=== PATIENT | male | born 1965 | race Caucasian/White ===

== ENCOUNTER 2017-11-03 15:45 | Inpatient (IN) | payer OTHER ==
[2017-11-03 17:34] LABS: ABS Basophils 0 10^3/ul (0-0.2); ABS Eosinophils 0 10^3/ul (0-0.6); ABS Lymphocytes 0.4 10^3/ul (1.0-4.8); ABS Monocytes 0.6 10^3/ul (0-0.8); ABS Neutrophils 8.8 10^3/ul (1.5-7.7); ABS Nucleated RBC 0 10^3/ul; Eosinophil % 0.3 % (0-6); Hematocrit 37 % (42-52); Hemoglobin 12.7 g/dl (14.0-18.0); Lymphocyte % 3.6 % (25-47); Mean Corpuscular HGB Conc 35 g/dl (31-36); Mean Corpuscular Hemoglobin 30 pg (27-31); Mean Corpuscular Volume 86 fL (80-94); Mean Platelet Volume 7 um3 (7.4-10.4); Nucleated Red Blood Cells % 0; Platelet Count 132 10^3/ul (150-450); Red Blood Count 4.27 10^6/ul (4.0-5.4); Red Cell Distribution Width 14 % (10.5-15); White Blood Count 9.8 10^3/ul (3.5-10.8)
[2017-11-03 17:46] LABS: EGFR Non-African American 53.4 (>60)
[2017-11-03] MEDS ORDERED: Iodixanol* (CONTRAST) 320 MG/ML 100 ML SDV IV ONE (18:26)
--- NOTE | 2017-11-03 18:55 | RAD ---
HISTORY: Fever and chills, lymph nodes that are painful and neck, abscess COMPARISONS: PET CT dated October 12, 2017, CT of the neck dated September 17, 2017, MRI dated February 02, 2015 TECHNIQUE: Multiple contiguous axial CT scans were obtained of the neck after the administration of nonionic intravenous contrast, with coronal and sagittal multiplanar reformations. FINDINGS: BRAIN AND ORBITS: The visualized brain and orbits are normal. PARANASAL SINUSES: There is a small mucous retention cyst versus polypoid mucosal thickening of the right maxillary sinus. SALIVARY GLANDS: The parotid glands, submandibular glands, sublingual glands are normal. NASAL CAVITY/NASOPHARYNX: The nasal cavity and nasopharynx are normal. ORAL CAVITY/OROPHARYNX: The oral cavity is obscured by streak artifact from dental amalgam. The visualized oral cavity and oropharynx are unremarkable. A surgical clip is noted in the region of the left pontine tonsil. LARYNGEAL APPARATUS/HYPOPHARYNX: The laryngeal apparatus and hypopharynx are normal. UPPER AIRWAY/UPPER ESOPHAGUS: The visualized upper airway and esophagus are normal. LUNG APICES: The lung apices are clear. THYROID GLAND: The thyroid gland is normal. LYMPH NODES: There is no lymphadenopathy by size criteria. VASCULATURE: The vasculature is unremarkable. BONES AND SOFT TISSUES: Mild degenerative changes are noted. OTHER: There is no loculated fluid collection to suggest abscess. There is no inflammatory change within the visualized portion of the neck. IMPRESSION: NO LYMPHADENOPATHY BY SIZE CRITERIA. NO LOCULATED FLUID COLLECTION TO SUGGEST ABSCESS.
[2017-11-03] MEDS ORDERED: Vancomycin(*) 1,000 MG in NS 0.9% 250 ML* 250 ML IVPB ONE (19:04)
[2017-11-03] MEDS ORDERED: Vancomycin(*) 1,000 MG BAG/ADDV IVPB ONE (20:13)
[2017-11-03] MEDS ORDERED: Acetaminophen TAB* 325 MG ONE (22:40)
[2017-11-03] MEDS ORDERED: Acetaminophen TAB* 325 MG PO ONE (22:41)
[2017-11-04] MEDS ORDERED: Ibuprofen TAB* 800 MG PO ONE (00:39)
[2017-11-04] MEDS ORDERED: NS 0.9% 1000 ML* 1,000 ML IV ONE (00:40)
--- NOTE | 2017-11-04 01:03 | ED ---
I, Gabby Montoya, scribed for Enzo Blackwood MD on 11/04/17 at 0040 . Progress - Progress Note Progress Note: Pt is a 51 y/o M signed out by Dr. 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 Pt presented to ED with pain, redness and mild swelling to the L side of the neck since yesterday with fever. Pt denies N/V, among other things. Pt's neck CT was negative. On exam, pt has tenderness and erythema to the L side of the neck with mild swelling. Pt was given 1 g of IV Vancomycin in ED earlier. Re-Evaluation - Re-Evaluation First Eval Re-Evaluation Time: 00:25 Comment: Evaluated the pt and discussed plan to admit. Course/Dx - Course Course Of Treatment: Pt is a 51 y/o M signed out by Dr. Mohr with a Hx of L- side neck CA s/p surgery and radiation and pt's surgery was complicated by chyle leak. Pt presented to ED with pain, redness and mild swelling to the L side of the neck since yesterday with fever. Pt denies N/V, among other things. Pt's neck CT was negative. On exam, pt has tenderness and erythema to the L side of the neck with mild swelling. Pt was given 1 g of IV Vancomycin in ED earlier. Due to the pt's Hx, I will admit pt for cellulitis of the left neck and IV Abx. Discussed care of pt with Dr. García who accepts pt for admission. He understands and agrees. Pt's ocndition is stable. - Diagnoses Provider Diagnoses: Cellulitis, neck - Provider Notifications Discussed Care Of Patient With: Eulogio García Time Discussed With Above Provider: 00:58 Instructed by Provider To: Other - Accepts pt for admission. The documentation as recorded by the Lindsay ramsey Rebecca accurately reflects the service I personally performed and the decisions made by me, Enzo Blackwood MD.
[2017-11-04] MEDS ORDERED: Acetaminophen TAB* 325 MG PO PRN (02:22)
[2017-11-04] MEDS ORDERED: CMCS: Melatonin (NF) 3 MG TAB PO PRN (02:22)
[2017-11-04] MEDS ORDERED: traMADol TAB* 50 MG PO PRN (02:22)
[2017-11-04] MEDS ORDERED: Ondansetron INJ* 2 MG/ML VIAL IV PRN (02:22)
[2017-11-04] MEDS ORDERED: NS 0.9% 1000 ML* 1,000 ML IV SCH (02:30)
[2017-11-04] MEDS ORDERED: Vancomycin per Pharmacy* NOTE FOLLOW UP SCH (03:00)
[2017-11-04] MEDS: Omeprazole CAP* 20 MG PO SCH (05:22)
[2017-11-04 05:26] LABS: ABS Basophils 0 10^3/ul (0-0.2); ABS Eosinophils 0.1 10^3/ul (0-0.6); ABS Lymphocytes 0.6 10^3/ul (1.0-4.8); ABS Monocytes 0.5 10^3/ul (0-0.8); ABS Neutrophils 4.6 10^3/ul (1.5-7.7); ABS Nucleated RBC 0 10^3/ul; Eosinophil % 1.8 % (0-6); Hematocrit 33 % (42-52); Hemoglobin 11.4 g/dl (14.0-18.0); Lymphocyte % 9.5 % (25-47); Mean Corpuscular HGB Conc 34 g/dl (31-36); Mean Corpuscular Hemoglobin 30 pg (27-31); Mean Corpuscular Volume 87 fL (80-94); Mean Platelet Volume 7 um3 (7.4-10.4); Nucleated Red Blood Cells % 0.1; Platelet Count 107 10^3/ul (150-450); Red Blood Count 3.79 10^6/ul (4.0-5.4); Red Cell Distribution Width 14 % (10.5-15); White Blood Count 5.8 10^3/ul (3.5-10.8)
[2017-11-04 05:43] LABS: INR 1.02 (0.77-1.02)
[2017-11-04 05:48] LABS: EGFR Non-African American 46.1 (>60)
--- NOTE | 2017-11-04 06:04 | HP ---
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 He denies N/V/S, difficulty swallowing, or other issues. He did have a PET/CT ~3 weeks ago which reportedly had a small/weak spot of uptake in this area not felt to be malignant by Dr Amaya, radiation oncology. In this setting, it could represent early infection. In ED he has had persistent fever despite acetaminophen, WBCs 9.8k 90% neutrophils. CT neck soft tissue W is negative. PMedHx L tonsillar CA s/p excision & radical neck dissection complicated by chyle leak , resolved HTN Ambulatory Orders Nursing to reconcile. Lisinopril TAB* [Prinivil TAB*] 10 mg PO DAILY 11/26/14 Cholecalciferol [Vitamin D] 1,000 unit PO DAILY 08/17/16 Multiple Vitamins W/ Minerals [Multivitamin Adults] 1 tab PO DAILY 08/17/16 Allergies No Known Allergies Allergy (Verified 09/17/17 10:38) PSurgHx tonsillectomy w/ L radical neck dissection thoracic duct ligation SocHx: no tobacco, alcohol, or recreational drugs; lives with his ; owns a [employer]; full code status FamHx: Mother: alive 70, benign adrenal tumor; Father: alive at 75 w/ HTN; Sister: HLD ROS: as above, otherwise reviewed and all were negative vitals: Vital Signs Temp 36.6 C 11/04/17 03:56 Pulse 70 11/04/17 03:56 Resp 16 11/04/17 03:56 BP 120/77 11/04/17 03:56 Pulse Ox 99 11/04/17 03:56 Intake & Output 11/03/17 11/03/17 11/04/17 11:59 23:59 11:59 Intake Total 96 Balance 96 Weight 72.121 kg 75.206 kg Intake: IV Fluids 96 NS (0.9%) 96 Constitutional: NAD, normally developed, well-nourished white male HEENM: atraumatic; sclera/conjunctiva: anicteric/clear; hearing: clinically intact; oropharynx: clear, mucosa tacky Neck: soft tissue: warmth & erythema of the L neck; thyroid: negative Pulmonary: clear to auscultation bilaterally, good aeration, no accessory muscle use CV: RR/RR, normal S1S2, no carotid bruit, no jugular venous distention, 2+ B DP/ PT, no edema Abdominal: soft, non-distended, non-tender, no rebound/guarding/rigidity, normoactive bowel sounds, no hepatosplenomegaly or masses, no costovertebral angle tenderness Musculoskeletal: general: grossly intact, no tenderness w/ palpation Integumental: as above Psychiatric orientation: AA&O to PPS affect: calm mood: cooperative eye contact: good content: reliable responses: timely insight: good Testing: Lab Results 11/03/17 11/03/17 11/03/17 Range/Units 17:16 17:16 17:35 WBC 9.8 (3.5-10.8) 10^3/ul RBC 4.27 (4.0-5.4) 10^6/ul Hgb 12.7 L (14.0-18.0) g/dl Hct 37 L (42-52) % MCV 86 (80-94) fL MCH 30 (27-31) pg MCHC 35 (31-36) g/dl RDW 14 (10.5-15) % Plt Count 132 L (150-450) 10^3/ul MPV 7 L (7.4-10.4) um3 Neut % (Auto) 90.1 H (38-83) % Lymph % (Auto) 3.6 L (25-47) % Reagan % (Auto) 5.9 (1-9) % Eos % (Auto) 0.3 (0-6) % Baso % (Auto) 0.1 (0-2) % Absolute Neuts (auto) 8.8 H (1.5-7.7) 10^3/ul Absolute Lymphs (auto) 0.4 L (1.0-4.8) 10^3/ul Absolute Monos (auto) 0.6 (0-0.8) 10^3/ul Absolute Eos (auto) 0 (0-0.6) 10^3/ul Absolute Basos (auto) 0 (0-0.2) 10^3/ul Absolute Nucleated RBC 0 10^3/ul Nucleated RBC % 0 INR (Anticoag Therapy) (0.77-1.02) APTT (26.0-36.3) seconds Sodium 136 (133-145) mmol/L Potassium 4.1 (3.5-5.0) mmol/L Chloride 103 (101-111) mmol/L Carbon Dioxide 27 (22-32) mmol/L Anion Gap 6 (2-11) mmol/L BUN 17 (6-24) mg/dL Creatinine 1.40 H (0.67-1.17) mg/dL Est GFR ( Amer) 68.7 (>60) Est GFR (Non-Af Amer) 53.4 (>60) BUN/Creatinine Ratio 12.1 (8-20) Glucose 103 H (70-100) mg/dL Calcium 9.4 (8.6-10.3) mg/dL Total Bilirubin 0.70 (0.2-1.0) mg/dL AST 20 (13-39) U/L ALT 14 (7-52) U/L Alkaline Phosphatase 54 (34-104) U/L C-Reactive Protein 77.17 H (< 5.00) mg/L Total Protein 6.4 (6.4-8.9) g/dL Albumin 3.6 (3.2-5.2) g/dL Globulin 2.8 (2-4) g/dL Albumin/Globulin Ratio 1.3 (1-3) Influenza A (Rapid) Negative (Negative) Influenza B (Rapid) Negative (Negative) 11/04/17 11/04/17 11/04/17 Range/Units 04:58 04:58 04:58 WBC 5.8 (3.5-10.8) 10^3/ul RBC 3.79 L (4.0-5.4) 10^6/ul Hgb 11.4 L (14.0-18.0) g/dl Hct 33 L (42-52) % MCV 87 (80-94) fL MCH 30 (27-31) pg MCHC 34 (31-36) g/dl RDW 14 (10.5-15) % Plt Count 107 L (150-450) 10^3/ul MPV 7 L (7.4-10.4) um3 Neut % (Auto) 79.4 (38-83) % Lymph % (Auto) 9.5 L (25-47) % Reagan % (Auto) 9.0 (1-9) % Eos % (Auto) 1.8 (0-6) % Baso % (Auto) 0.3 (0-2) % Absolute Neuts (auto) 4.6 (1.5-7.7) 10^3/ul Absolute Lymphs (auto) 0.6 L (1.0-4.8) 10^3/ul Absolute Monos (auto) 0.5 (0-0.8) 10^3/ul Absolute Eos (auto) 0.1 (0-0.6) 10^3/ul Absolute Basos (auto) 0 (0-0.2) 10^3/ul Absolute Nucleated RBC 0 10^3/ul Nucleated RBC % 0.1 INR (Anticoag Therapy) 1.02 (0.77-1.02) APTT 30.1 (26.0-36.3) seconds Sodium (133-145) mmol/L Potassium (3.5-5.0) mmol/L Chloride (101-111) mmol/L Carbon Dioxide (22-32) mmol/L Anion Gap (2-11) mmol/L BUN 17 (6-24) mg/dL Creatinine 1.59 H (0.67-1.17) mg/dL Est GFR ( Amer) 59.3 (>60) Est GFR (Non-Af Amer) 46.1 (>60) BUN/Creatinine Ratio (8-20) Glucose (70-100) mg/dL Calcium (8.6-10.3) mg/dL Total Bilirubin (0.2-1.0) mg/dL AST (13-39) U/L ALT (7-52) U/L Alkaline Phosphatase (34-104) U/L C-Reactive Protein (< 5.00) mg/L Total Protein (6.4-8.9) g/dL Albumin (3.2-5.2) g/dL Globulin (2-4) g/dL Albumin/Globulin Ratio (1-3) Influenza A (Rapid) (Negative) Influenza B (Rapid) (Negative) CT neck soft tissue W, personally reviewed: IMPRESSION: NO LYMPHADENOPATHY BY SIZE CRITERIA. NO LOCULATED FLUID COLLECTION TO SUGGEST ABSCESS. Impression: 51M HX L tonsillar CA, radical neck dissection, & thoracic duct ligation presenting with L neck soft tissue infection DIAGNOSIS & PLAN Primary L neck soft tissue infection : IV vancomycin until improved as he has inadequate lymphatic support to the area : IVFs : blood CX : supportive care Secondary HTN : continue lisinopril Admission Rational: inpatient for IVFs & IV ABX for L neck infection, no anticipated to be adequately improve w/i 48H to allow for discharge DVTp: heparin SQ Code Status: full HCP:
[2017-11-04] MEDS: Docusate CAP* 100 MG PO SCH ×2 (07:21→20:54)
[2017-11-04] MEDS: Lisinopril TAB* 10 MG PO SCH (07:21)
--- NOTE | 2017-11-04 09:01 | PN ---
Subjective - Subjective Reason for Note: Progress Note History: Mary Grace Lorenzo presents with pain in the left posterior neck and fever. I obtained a history from the patient and also from Dr. García's admitting history and physical. 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 He was managed with surgery at [facility] and this was complicated by a thoracic duct injury with chyle leak that subsequently resolved. This was followed by radiotherapy at [facility] in 2015. His radiation oncologist is Dr. Aashish Amaya. His routine screening CT scans showed x 2 ground glass opacities in his lungs. This led to a PET scan 2 weeks ago. He had some pain in the area of the right ear that resolved - interestingly there was a signal also over the right parotid, maybe he had mild parotiditis accounting for this pain. The chest was clear, but there was uptake in the posterior neck. 3 days ago he developed a sore throat. He then couldn' t keep warm and had a fever. He developed pain in the left posterior neck along the line of a muscle. There was swelling and redness in the same region. This morning his fever has gone, he continues to be tender in the area in his neck, but this is improved. He has no other new symptoms. 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) C09.9 Current Medications: Current Medications Acetaminophen (Tylenol Tab*) 650 mg PO Q6H PRN PRN Reason: FEVER/PAIN Docusate Sodium (Colace Cap*) 200 mg PO BID [facility] Last Admin: 11/04/17 07:21 Dose: Not Given Heparin Sodium (Porcine) (Heparin Vial(*)) 5,000 units SUBCUT Q8HR [facility] Sodium Chloride (Ns 0.9% 1000 Ml*) 1,000 mls @ 75 mls/hr IV PER RATE [facility] Last Admin: 11/04/17 04:05 Dose: 75 mls/hr Vancomycin HCl 1,000 mg/ (Sodium Chloride) 250 mls @ 166.667 mls/hr IVPB Q12H [facility] Lisinopril (Prinivil Tab*) 10 mg PO DAILY [facility] Last Admin: 11/04/17 07:21 Dose: 10 mg Melatonin (Melatonin (Nf)) 3 mg PO BEDTIME PRN; Protocol PRN Reason: Sleep Omeprazole (Prilosec Cap*) 20 mg PO DAILY@0600 [facility] Last Admin: 11/04/17 05:22 Dose: 20 mg Ondansetron HCl (Zofran Inj*) 4 mg IV Q6H PRN PRN Reason: NAUSEA Pharmacy Consult (Vancomycin Per Pharmacy*) 1 note FOLLOW UP .VANC PER PHARMACY [facility] Pharmacy Profile Note (Vancomycin Trough Check) 1 note FOLLOW UP 929 ONE Stop: 11/05/17 09:31 Tramadol HCl (Ultram*) 50 mg PO Q6H PRN PRN Reason: PAIN - Review of Systems Constitutional Symptoms: Yes: Fever Pulmonary: Negative: Cough, Sputum, Hemoptysis Cardiology: Negative: Chest Pain, Shortness of Breath, Palpitations, Edema Gastroenterology: Negative: Abdominal Pain, Nausea, Vomiting, Anorexia, Change in Bowel Habits Genital - Urinary: Negative: Dysuria Home Medications: Home Medications Medication Instructions Recorded Confirmed Type Lisinopril TAB* [Prinivil TAB*] 10 mg PO DAILY 11/26/14 11/04/17 History Cholecalciferol [Vitamin D] 1,000 unit PO DAILY 08/17/16 11/04/17 History Multiple Vitamins W/ Minerals 1 tab PO DAILY 08/17/16 11/04/17 History [Multivitamin Adults] Allergies: Allergies Allergy/AdvReac Type Severity Reaction Status Date / Time No Known Allergies Allergy Verified 09/17/17 10:38 Objective - Vital Signs Vital Signs: Vital Signs 11/04/17 11/04/17 11/04/17 03:22 03:56 07:15 Temperature 99.1 F 97.9 F 98.1 F Pulse Rate 78 70 Respiratory 16 16 Rate Blood Pressure 127/68 120/77 122/70 (mmHg) O2 Sat by Pulse 98 99 Oximetry 11/04/17 07:28 Temperature Pulse Rate Respiratory 16 Rate Blood Pressure (mmHg) O2 Sat by Pulse Oximetry - Intake and Output Intake and Output: Intake & Output 11/01/17 11/02/17 11/03/17 11/04/17 11:59 11:59 11:59 11:59 Intake Total 96 Balance 96 Weight 165 lb 12.8 oz Intake: IV Fluids 96 NS (0.9%) 96 Oral 0 Other: Estimated Void Large # Bowel Movements 0 # Voids 1 ADLs: Meal Record Start: 11/04/17 03: 25 Freq: DAILY@0900,1400,1800 Status: Active Protocol: Created 11/04/17 03:25 System (Rec: 11/04/17 03:25 System [id number]) Intake and Output Start: 11/04/17 03: 25 Freq: DAILY@0600,1400,2200 Status: Active Protocol: Created 11/04/17 03:25 System (Rec: 11/04/17 03:25 System [id number]) Document 11/04/17 06:00 [id number] (Rec: 11/04/17 06:23 [id number]) - Physical Exam General Physical Exam Comment: He has tenderness along the anterior aspect of the left trapezius muscle. There is no swelling or warmth/erythema. There is no cellulitis. General: No Cyanosis, No Anemia, No Jaundice, No Clubbing Skin: Normal: Rash Lungs and Chest: Yes: Chest Expansion Full, Chest Expansion Symetrica, Percussion Note Resonant, Vessicular Breath Sounds. No: Crackles, Wheezes Heart Rate and Rhythm: Regular Additional Cardiovascular: Yes: Normal Heart Sounds. No: Heart Murmur, Pedal Edema Abdominal Exam: Yes: Soft, Bowel Sounds Present. No: Distention, Abdominal Mass , Hepatomegaly Results - Results Lab Results: Laboratory Results - last 24 hr 11/04/17 11/04/17 11/04/17 04:58 04:58 04:58 WBC 5.8 RBC 3.79 L Hgb 11.4 L Hct 33 L MCV 87 MCH 30 MCHC 34 RDW 14 Plt Count 107 L MPV 7 L Neut % (Auto) 79.4 Lymph % (Auto) 9.5 L Frederick % (Auto) 9.0 Eos % (Auto) 1.8 Baso % (Auto) 0.3 Absolute Neuts (auto) 4.6 Absolute Lymphs (auto) 0.6 L Absolute Monos (auto) 0.5 Absolute Eos (auto) 0.1 Absolute Basos (auto) 0 Absolute Nucleated RBC 0 Nucleated RBC % 0.1 INR (Anticoag Therapy) 1.02 APTT 30.1 Sodium 137 Potassium 4.0 Chloride 105 Carbon Dioxide 26 Anion Gap 6 BUN 17 Creatinine 1.59 H Est GFR ( Amer) 59.3 Est GFR (Non-Af Amer) 46.1 BUN/Creatinine Ratio 10.7 Glucose 94 Calcium 8.6 Radiology Results: Patient Name: MARY GRACE LORENZO Medical Record#: [id number] Ordering Physician: Aashish Amaya MD Acct.#: [id number] : 1965 Age: 51 Sex: M Location: IMAGING Exam Date: 09/17/17 ADM Status: REG REF Order Information: CT CHEST W Accession Number: [id number] CPT: 29862 Indication: Tonsillar neoplasm. CT of the chest was performed after IV contrast administration. Coronal and sagittal reconstructed images were obtained. Inferior thyroid lobes are unremarkable. There is no mediastinal or hilar adenopathy. The heart demonstrates no pericardial effusion. The trachea and major bronchi appear patent. The lung handy demonstrate groundglass appearance in the left lower lobe. Three areas are noted. These were not present on previous exam of August 17, 2016. Follow-up is suggested. I cannot totally exclude metastatic disease, although there are air bronchograms noted and this could represent inflammatory changes. No pleural fluid is identified. The heart demonstrates no pericardial effusion. The bony structures are grossly unremarkable. IMPRESSION: 1. Areas in the left lower lobe superior segment are noted which are groundglass in appearance. There are three such areas with nonsolid appearance. Although this could represent inflammatory change, metastatic disease is not excluded and close clinical follow-up is suggested. These were not present previously. 2. No mediastinal or hilar adenopathy is noted. <Electronically signed by Matilde Fraga MD in [place]> 09/17/17 1601 Dictated By: Matilde Fraga MD Dictated Date/Time: 09/17/17 1601 Transcribed Date/Time: 09/17/17 1148 Copy to: CC:Macarena Royal MD; Aashish Amaya MD Imaging - [facility] Imaging - [facility] Imaging - [facility] [address] [place] [id number] ph [phone] ph [phone]) ph ([phone]) 1 of 1 Patient Name: MARY GRACE LORENZO Medical Record#: [id number] Ordering Physician: Aashish Amaya MD Acct.#: [id number] : 1965 Age: 51 Sex: M Location: IMAGING Exam Date: 10/12/17 ADM Status: REG REF Order Information: PET SKULL-THIGH W/CT-SUBSEQUEN Accession Number: [id number] CPT: 45974 INDICATION: Neoplasm of the lingual tonsil Comparison: CT of the neck and chest dated September 17, 2017. Most recent PET/ CT dated August 19, 2015 Technique: A PET-CT study was performed following intravenous injection of 12 mCi of FDG-18. The whole body was imaged and the dataset was reconstructed in the axial , sagittal and coronal planes and in a 3-D volume rendered format. The images were fused with the CT images. Blood glucose level: 79 mg/dl FINDINGS: Head and neck: There is relative asymmetric uptake at the right parotid gland compared to the left with an SUV of 2.7 without a corresponding focal lesion on the CT examination. In the subcutaneous tissue at the lower left neck base (axial image 66) there is a small focus of uptake measuring under 2 SUV of doubtful clinical consideration as there is no definite corresponding CT finding. This finding is also visible on the coronal plane images (image 45). Chest: The lungs are clear. No pleural effusion is present. No enlarged mediastinal or hilar lymph nodes are seen. There is physiologic distribution of radiopharmaceutical. Abdomen and pelvis: The liver and spleen are normal in size without significant focal abnormality. The pancreas appears within normal limits. The kidneys and adrenal glands are normal in size. There is physiologic distribution of radiopharmaceutical. Osseous structures: There is physiologic distribution of radiopharmaceutical. No significant focal osseous abnormality is seen. IMPRESSION: 1. THERE IS A SMALL FOCUS OF SUBCUTANEOUS UPTAKE AT THE SUBCUTANEOUS TISSUE OF THE LEFT NECK BASE WITH AN SUV OF APPROXIMATELY 2. THERE IS NO DEFINITE CORRESPONDING LYMPH NODE OR OTHER LESION. PLEASE CORRELATE TO PHYSICAL EXAMINATION. IF CLINICALLY WARRANTED ULTRASOUND OF THIS AREA MAY IDENTIFY A NODULE. 2. INCREASED UPTAKE AT THE RIGHT PAROTID GLAND MEASURING UP TO 3.0 SUV COMPARED TO THE CONTRALATERAL SIDE OF DOUBTFUL CLINICAL CONCERN. 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 He has increased CRP and a neutrophilia. He was started on vancomycin and this morning he is feeling improved. I am concerned that this targets Staphylococcus aureus, but this is not the only possible organism and I will add some broader coverage with zosyn. I note that there was a signal on his PET scan 2 weeks ago in this area, perhaps indicating incipient infection. The underlying reason for infection in this area may relate to his prior surgery/radiotherapy or potentially to recurrent tumor. I will ask Dr. Aashish Amaya for a radiation oncology opinion. 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 I discussed the above with the patient and he agrees with the plan.
[2017-11-04] MEDS: Vancomycin(*) 1,000 MG in NS 0.9% 250 ML* 250 ML IVPB SCH ×2 (09:43→22:20)
[2017-11-04] MEDS ORDERED: Piperacillin/Tazobac (*) 3.375 GM BAG IVPB SCH (10:00)
[2017-11-04] MEDS: ZOSYN 3.375 GM Q8H per EXTENDED INFUSION IVPB SCH ×4 (12:00→17:34)
--- NOTE | 2017-11-04 12:57 | ED ---
Sourav Murillo Julia, scribed for Saulo Mohr MD on 11/03/17 at 1622 . Complex/Multi-Sys Presentation - HPI Summary HPI Summary: This patient is a 51 year old M presenting to [facility] accompanied by his with a chief complaint of since the morning of 11/01/17. Patient reports a fever of 103, neck pain, fatigue, chills, currently resolved sore throat and posterior tongue pain. Patient has neck and tongue pain at baseline but has worsened past few days. Patient denies congestion. The patient rates the pain 3/ 10 in severity. Patient has received influenza vaccination but not PNA vaccination. 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 Patient states that a neck PET scan revealed no pathology. Patients oncologist is Dr. Amaya. - History Of Current Complaint Chief Complaint: EDFluSymptoms Time Seen by Provider: 11/03/17 15:59 Hx Obtained From: Patient Onset/Duration: Lasting Days Timing: Constant, Days Location: Pain At: - neck, throat, tongue Associated Signs And Symptoms: Positive: Fever, Other - neck pain, fatigue, chills, currently resolved sore throat and posterior tongue pain - Allergies/Home Medications Allergies/Adverse Reactions: Allergies Allergy/AdvReac Type Severity Reaction Status Date / Time No Known Allergies Allergy Verified 09/17/17 10:38 PMH/Surg Hx/FS Hx/Imm Hx Endocrine/Hematology History: Denies: Hx Diabetes, Hx Thyroid Disease Cardiovascular History: Reports: Hx Hypertension Denies: Hx Pacemaker/ICD Respiratory History: Denies: Hx Asthma, Hx Chronic Obstructive Pulmonary Disease (COPD) GI History: Denies: Hx Ulcer History: Reports: Hx Renal Disease - "leaky kidney" Seen by Dr Coates. Resolved Denies: Hx Dialysis Sensory History: Denies: Hx Hearing Aid Psychiatric History: Denies: Hx Panic Disorder - Cancer History Cancer Type, Location and Year: neck 2014 Hx Chemotherapy: No Hx Radiation Therapy: No - Surgical History Surgery Procedure, Year, and Place: Removal of lymph nodes and tumor to left side of neck 2014. - Immunization History Date of Tetanus Vaccine: Unknown Date of Influenza Vaccine: 2016 Infectious Disease History: No Infectious Disease History: Denies: Hx Clostridium Difficile, Hx Hepatitis, Hx Human Immunodeficiency Virus (HIV), Hx of Known/Suspected MRSA, Hx Shingles, Hx Tuberculosis, Hx Known/ Suspected VRE, Hx Known/Suspected VRSA, History Other Infectious Disease, Traveled Outside the [place] in Last 30 Days - Family History Known Family History: Negative: Cardiac Disease, Diabetes - Social History Lives: With Family Alcohol Use: None Substance Use Type: Reports: None Smoking Status (MU): Never Smoked Tobacco Review of Systems Positive: Fever, Chills, Fatigue ENT: Other - tongue pain Positive: Sore Throat Positive: Other - neck pain All Other Systems Reviewed And Are Negative: Yes Physical Exam - Summary Physical Exam Summary: Appearance: The patient is well-nourished in no acute distress and in no acute pain. Skin: The skin is warm and dry and skin color reflects adequate perfusion. HEENT: The head is normocephalic and atraumatic. The pupils are equal and reactive. The conjunctivae are clear and without drainage. Nares are patent and without drainage. Mouth reveals moist mucous membranes and the throat is without erythema and exudate. The external ears are intact. The ear canals are patent and without drainage. The tympanic membranes are intact. No obvious lymphadenopathy. Scaring and induration challenges exam. Neck is erythemic. Neck: the neck is supple with full range of motion and non-tender. There are no carotid bruits. There is no neck vein distension. Respiratory: Chest is non-tender. Lungs are clear to auscultation and breath sounds are symmetrical and equal. Cardiovascular: Heart is regular rate and rhythm. There is no murmur or rub auscultated. There is no peripheral edema and pulses are symmetrical and equal. Abdomen: The abdomen is soft and non-tender. There are normal bowel sounds heard in all four quadrants and there is no organomegaly palpated. Musculoskeletal: There is no back tenderness noted. Extremities are non-tender with full range of motion. There is good capillary refill. There is no peripheral edema or calf tenderness elicited. Neurological: Patient is alert and oriented to person, place and time. The patient has symmetrical motor strength in all four extremities. Cranial nerves are grossly intact. Deep tendon reflexes are symmetrical and equal in all four extremities. Psychiatric: The patient has an appropriate affect and does not exhibit any anxiety or depression. Triage Information Reviewed: Yes Vital Signs On Initial Exam: Initial Vitals Temp Pulse Resp BP Pulse Ox 103.6 F 103 17 167/95 98 11/03/17 15:50 11/03/17 15:50 11/03/17 15:50 11/03/17 15:50 11/03/17 15:50 Vital Signs Reviewed: Yes Diagnostics - Vital Signs Vital Signs Temp Pulse Resp BP Pulse Ox 11/03/17 15:50 103.6 F 103 17 167/95 98 - Laboratory Lab Results: Lab Results 11/03/17 11/03/17 11/03/17 Range/Units 17:16 17:16 17:35 WBC 9.8 (3.5-10.8) 10^3/ul RBC 4.27 (4.0-5.4) 10^6/ul Hgb 12.7 L (14.0-18.0) g/dl Hct 37 L (42-52) % MCV 86 (80-94) fL MCH 30 (27-31) pg MCHC 35 (31-36) g/dl RDW 14 (10.5-15) % Plt Count 132 L (150-450) 10^3/ul MPV 7 L (7.4-10.4) um3 Neut % (Auto) 90.1 H (38-83) % Lymph % (Auto) 3.6 L (25-47) % [place] % (Auto) 5.9 (1-9) % Eos % (Auto) 0.3 (0-6) % Baso % (Auto) 0.1 (0-2) % Absolute Neuts (auto) 8.8 H (1.5-7.7) 10^3/ul Absolute Lymphs (auto) 0.4 L (1.0-4.8) 10^3/ul Absolute Monos (auto) 0.6 (0-0.8) 10^3/ul Absolute Eos (auto) 0 (0-0.6) 10^3/ul Absolute Basos (auto) 0 (0-0.2) 10^3/ul Absolute Nucleated RBC 0 10^3/ul Nucleated RBC % 0 Sodium 136 (133-145) mmol/L Potassium 4.1 (3.5-5.0) mmol/L Chloride 103 (101-111) mmol/L Carbon Dioxide 27 (22-32) mmol/L Anion Gap 6 (2-11) mmol/L BUN 17 (6-24) mg/dL Creatinine 1.40 H (0.67-1.17) mg/dL Est GFR ( Amer) 68.7 (>60) Est GFR (Non-Af Amer) 53.4 (>60) BUN/Creatinine Ratio 12.1 (8-20) Glucose 103 H (70-100) mg/dL Calcium 9.4 (8.6-10.3) mg/dL Total Bilirubin 0.70 (0.2-1.0) mg/dL AST 20 (13-39) U/L ALT 14 (7-52) U/L Alkaline Phosphatase 54 (34-104) U/L C-Reactive Protein 77.17 H (< 5.00) mg/L Total Protein 6.4 (6.4-8.9) g/dL Albumin 3.6 (3.2-5.2) g/dL Globulin 2.8 (2-4) g/dL Albumin/Globulin Ratio 1.3 (1-3) Influenza A (Rapid) Negative (Negative) Influenza B (Rapid) Negative (Negative) Result Diagrams: 11/04/17 04:58 11/04/17 04:58 Lab Statement: Any lab studies that have been ordered have been reviewed, and results considered in the medical decision making process. - CT Neck CT Interpretation Completed By: Radiologist - NO LYMPHADENOPATHY BY SIZE CRITERIA. NO LOCULATED FLUID COLLECTION TO SUGGEST ABSCESS. ED Physician has reivewed this report. Complex Multi-Symp Course/Dx Course Of Treatment: Mr. Lorenzo presented with a fever and neck pain. Clinically he had a cellulitis to the neck. Labs were OK. A CT showed no abcess or fluid collection. He has poor lymphtic drainage to the area but is getting IV Vancomycin at this time and I would expect to try him at home first with PO keflex and close F/U. - Diagnoses Provider Diagnoses: Cellulitis, neck Discharge - Discharge Plan Condition: Stable Disposition: ADMITTED TO [facility] documentation as recorded by the Sourav ramsey Julia accurately reflects the service I personally performed and the decisions made by me, Saulo Mohr MD.
[2017-11-04] MEDS: Lactobacillus Acidophilu (GG)* 1 CAP CAP PO SCH (20:54)
[2017-11-05] MEDS: ZOSYN 3.375 GM Q8H per EXTENDED INFUSION IVPB SCH ×4 (02:01→10:17)
[2017-11-05] MEDS: Heparin VIAL(*) 5000 UNITS/ML VIAL (FIVE THOUSAND) SUBCUT SCH ×3 (05:39→20:43)
[2017-11-05] MEDS: Omeprazole CAP* 20 MG PO SCH (05:39)
[2017-11-05 06:44] LABS: ABS Basophils 0 10^3/ul (0-0.2); ABS Eosinophils 0.1 10^3/ul (0-0.6); ABS Lymphocytes 0.5 10^3/ul (1.0-4.8); ABS Monocytes 0.4 10^3/ul (0-0.8); ABS Neutrophils 2.9 10^3/ul (1.5-7.7); ABS Nucleated RBC 0 10^3/ul; Eosinophil % 3.7 % (0-6); Hematocrit 34 % (42-52); Hemoglobin 12.1 g/dl (14.0-18.0); Mean Corpuscular HGB Conc 35 g/dl (31-36); Mean Corpuscular Hemoglobin 30 pg (27-31); Mean Corpuscular Volume 86 fL (80-94); Mean Platelet Volume 8 um3 (7.4-10.4); Nucleated Red Blood Cells % 0.1; Platelet Count 124 10^3/ul (150-450); Red Blood Count 4.01 10^6/ul (4.0-5.4); Red Cell Distribution Width 14 % (10.5-15); White Blood Count 3.9 10^3/ul (3.5-10.8)
[2017-11-05 07:03] LABS: EGFR Non-African American 51.3 (>60)
[2017-11-05] MEDS: Lactobacillus Acidophilu (GG)* 1 CAP CAP PO SCH ×2 (07:59→20:42)
[2017-11-05] MEDS: Docusate CAP* 100 MG PO SCH ×2 (07:59→20:42)
[2017-11-05] MEDS: Lisinopril TAB* 10 MG PO SCH (07:59)
[2017-11-05] MEDS ORDERED: Vancomycin Trough Check NOTE FOLLOW UP ONE (09:30)
[2017-11-05] MEDS: Vancomycin(*) 1,000 MG in NS 0.9% 250 ML* 250 ML IVPB SCH (12:46)
[2017-11-05] MEDS ORDERED: Vancomycin(*) 1,000 MG in NS 0.9% 250 ML* 250 ML IVPB ONE (14:00)
--- NOTE | 2017-11-05 19:16 | PN ---
Subjective Date of Service: 11/05/17 Interval History: subjective increase in fullness in left neck in distribution correlated to prior radiation exposure. very focal area of tenderness to palpation inferior to left ear. afebrile, blood cultures negative. no leukocytosis. Blood Cultures negative. episode started with "deep pain" Sunday AM "between gumline and back of tongue " cough for greater than 1 month Objective Active Medications: Acetaminophen (Tylenol Tab*) 650 mg PO Q6H PRN PRN Reason: FEVER/PAIN Docusate Sodium (Colace Cap*) 200 mg PO BID [facility] Last Admin: 11/05/17 07:59 Dose: 200 mg Heparin Sodium (Porcine) (Heparin Vial(*)) 5,000 units SUBCUT Q8HR [facility] Last Admin: 11/05/17 13:40 Dose: Not Given Piperacillin Sod/Tazobactam (Sod 3.375 gm/ Sodium Chloride) 100 mls @ 200 mls/ hr IVPB Q6H [facility] Vancomycin HCl 1,000 mg/ (Sodium Chloride) 250 mls @ 166.667 mls/hr IVPB Q12H [facility] Lactobacillus Rhamnosus (Culturelle*) 1 cap PO BID [facility] Last Admin: 11/05/17 07:59 Dose: 1 cap Lisinopril (Prinivil Tab*) 10 mg PO DAILY [facility] Last Admin: 11/05/17 07:59 Dose: 10 mg Melatonin (Melatonin (Nf)) 3 mg PO BEDTIME PRN; Protocol PRN Reason: Sleep Omeprazole (Prilosec Cap*) 20 mg PO DAILY@0600 [facility] Last Admin: 11/05/17 05:39 Dose: 20 mg Ondansetron HCl (Zofran Inj*) 4 mg IV Q6H PRN PRN Reason: NAUSEA Pharmacy Consult (Vancomycin Per Pharmacy*) 1 note FOLLOW UP .VANC PER PHARMACY [facility] Pharmacy Profile Note (Vancomycin Trough Check) 1 note FOLLOW UP 0530 ONE Stop: 11/07/17 05:31 Tramadol HCl (Ultram*) 50 mg PO Q6H PRN PRN Reason: PAIN Vital Signs - 8 hr 11/05/17 11/05/17 11:37 15:17 Temperature 98.3 F 97.9 F Pulse Rate 65 78 Respiratory 18 16 Rate Blood Pressure 123/79 126/77 (mmHg) O2 Sat by Pulse 100 99 Oximetry Oxygen Devices in Use Now: None Appearance: NAD, awoken from sleep Eyes: No Scleral Icterus, PERRLA Ears/Nose/Mouth/Throat: Mucous Membranes Moist Neck: - - slight erythema and very slight warmth in left neck under jaw to left ear. point tenderness inferior left ear Respiratory: Symmetrical Chest Expansion and Respiratory Effort, Clear to Auscultation Cardiovascular: NL Sounds; No Murmurs; No JVD, RRR Abdominal: NL Sounds; No Tenderness; No Distention Extremities: No Edema, No Clubbing, Cyanosis Skin: No Nodules or Sclerosis Neurological: Alert and Oriented x 3, NL Sensation, NL Muscle Strength and Tone Nutrition: Taking PO's Result Diagrams: 11/05/17 06:10 11/05/17 06:10 Additional Lab and Data: Laboratory Results - last 24 hr 11/05/17 11/05/17 11/05/17 06:10 06:10 10:17 WBC 3.9 RBC 4.01 Hgb 12.1 L Hct 34 L MCV 86 MCH 30 MCHC 35 RDW 14 Plt Count 124 L MPV 8 Neut % (Auto) 73.6 Lymph % (Auto) 13.0 L [place] % (Auto) 9.0 Eos % (Auto) 3.7 Baso % (Auto) 0.7 Absolute Neuts (auto) 2.9 Absolute Lymphs (auto) 0.5 L Absolute Monos (auto) 0.4 Absolute Eos (auto) 0.1 Absolute Basos (auto) 0 Absolute Nucleated RBC 0 Nucleated RBC % 0.1 Sodium 139 Potassium 3.9 Chloride 107 Carbon Dioxide 26 Anion Gap 6 BUN 14 Creatinine 1.45 H Est GFR ( Amer) 66.0 Est GFR (Non-Af Amer) 51.3 BUN/Creatinine Ratio 9.7 Glucose 96 Calcium 8.8 C-Reactive Protein 68.19 H Vancomycin Trough 15.0 Microbiology and Other Data: Microbiology 11/03/17 17:27 Blood Venous Aerobic Blood Culture - Preliminary No Growth Day 2 11/03/17 17:27 Blood Venous Anaerobic Blood Culture - Preliminary No Growth Day 2 11/03/17 17:16 Blood Venous Aerobic Blood Culture - Preliminary No Growth Day 2 11/03/17 17:16 Blood Venous Anaerobic Blood Culture - Preliminary No Growth Day 2 11/03/17 17:16 Nasal Influenza Types A,B Antigen (CALEB) - Final Specimen received for Influenza A/B Molecular testing Assess/Plan/Problems-Billing Assessment: 51 yo male 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 Imaging w/o e/o fluid collection. Defervesced on IV vanc & zosyn. - Patient Problems (1) Fasciitis, unspecified Current Visit: Yes Status: Acute Code(s): M72.9 - FIBROBLASTIC DISORDER, UNSPECIFIED SNOMED Code(s): 54504632 Comment: No nat fluid collections seen on CT Neck. Hx of radiation exposure and lymphatic drainage issues likely increasing risk of infection and may hamper immune response nontoxic appearing but with continued erythema and subjective swelling. Will continue on broad spectrum vanc and zosyn for additional day. Consideration for discharge on po Augmentin + clinda. Would follow-up with his Surgeon at [facility] Dr. Fajardo. 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 Amaya. (3) Fever Current Visit: Yes Status: Acute Code(s): R50.9 - FEVER, UNSPECIFIED SNOMED Code(s): 457099557 Comment: likely from fascitis. If returns would get CXR vs repeat CT chest( last with ggo) given cough >1 month. f/u Bcx denies dysuria or frequency (4) Cough Current Visit: Yes Status: Acute Code(s): R05 - COUGH SNOMED Code(s): 76933544 Comment: Hx of esophogeal stricture from radiation tx consider CXR (5) CKD (chronic kidney disease) stage 3, GFR 30-59 ml/min Current Visit: Yes Status: Acute Code(s): N18.3 - CHRONIC KIDNEY DISEASE, STAGE 3 (MODERATE) SNOMED Code(s): 273067135 Comment: stable. Improving trend over last few years. (6) Radiation-induced esophageal stricture Current Visit: Yes Status: Acute Code(s): K22.2 - ESOPHAGEAL OBSTRUCTION SNOMED Code(s): 838995749 Comment: investigate further (7) Injury of thoracic duct Current Visit: Yes Status: Chronic Code(s): S27.899A - UNSPECIFIED INJURY OF OTH INTRATHORACIC ORGANS, INIT ENCNTR SNOMED Code(s): 372531778 (8) Salivary gland atrophy Current Visit: Yes Status: Chronic Code(s): K11.0 - ATROPHY OF SALIVARY GLAND SNOMED Code(s): 17651093 Status and Disposition: medicine inpatient. Attending: Dong Abreu
[2017-11-06] MEDS: Heparin VIAL(*) 5000 UNITS/ML VIAL (FIVE THOUSAND) SUBCUT SCH (05:32)
[2017-11-06] MEDS ORDERED: Vancomycin(*) 1,000 MG in NS 0.9% 250 ML* 250 ML IVPB SCH (06:00)
[2017-11-06] MEDS: Omeprazole CAP* 20 MG PO SCH (06:15)
[2017-11-06 07:59] VITALS: BP 123/79
[2017-11-06] MEDS: Docusate CAP* 100 MG PO SCH (08:14)
[2017-11-06] MEDS: Lisinopril TAB* 10 MG PO SCH (08:16)
[2017-11-06] MEDS: Lactobacillus Acidophilu (GG)* 1 CAP CAP PO SCH (08:16)
[2017-11-07] MEDS ORDERED: Vancomycin Trough Check NOTE FOLLOW UP ONE (05:30)
--- NOTE | 2017-11-07 14:10 | DS ---
DISCHARGE SUMMARY: DATE OF ADMISSION: 11/04/17 DATE OF DISCHARGE: 11/06/17 ADMITTING PROVIDER: Eulogio García MD ATTENDING PHYSICIAN: Dong Abreu MD Also, seen by Gregorio Villalba MD PRIMARY CARE PHYSICIAN: Penny Pham MD CHIEF COMPLAINT: Fevers, chills, left-sided jaw, and gumline pain, swelling and erythema of the left neck. PRINCIPAL DIAGNOSIS: Left neck cellulitis versus fasciitis of suspected otogenic source. 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 He has been getting radiation treatments with Dr. Amaya for last 3 years. The patient had onset of malaise, fatigue on 10/31/17 , , 3 days prior to admission, developed some neck erythema, fevers, chills, diaphoresis on 11/03/17, the day he presented to the emergency room. He had noticed some pain in his left lower jaw, between his teeth and gumline. Upon presentation to the emergency room, he was found to have high fever and was started on IV vancomycin for a suspected soft tissue infection of the left neck. Of note, he has been getting surveillance. Imaging studies for his tonsillar cancer most recently with a PET scan, which had a small focus of subcutaneous uptake at the subcutaneous tissue at the left neck base with no corresponding lymph node or other lesion. This was obtained on 10/12/17. He had a CT chest with contrast on 09/17/17, which showed some left lower lobe superior segment, ground-glass opacities. On this presentation , he had a CT of the neck, soft tissue with contrast, which showed no lymphadenopathy, likely fluid collection to suggest abscess and these were reviewed with radiologist, Dr. Amaya. Dr. Gregorio Villalba saw the patient cruise consultant, same day of official admission date and started the patient on IV Zosyn to get gram-negative coverage. The patient's initial fever had been 103.6 and quickly defervesced. He had no leukocytosis, but neutrophil predominance 90.1% on admission. CRP was 77, slightly improved to 68 on . The patient to receive total of 2-1/2 days of IV vancomycin and 2 days of IV Zosyn. He had subjective improvement in the erythema of his left neck and subjective swelling of his left neck. He has had focal point tenderness just inferior and posterior to his left ear, which resolved. He was nontoxic appearing. On hospital day #2 and day of discharge, blood cultures were negative x3 days. Flu testing was negative. He is being discharged with oral antibiotic therapy to include Augmentin for coverage of potential otogenic source and clindamycin for other potential gram-positive/MRSA coverage, total additional 7 days of these antibiotics. The patient was recommended to follow up with Dr. Penny Pham and was arranged to see her on 11/09/17, at 12:30 p.m. DISCHARGE MEDICATIONS: Include: 1. Augmentin 875 mg p.o. b.i.d. for 7 days. 2. Clindamycin 450 mg tab t.i.d. for 7 days. 3. Lisinopril 10 mg daily. 4. Multivitamin tab daily. DIET: No restrictions. ACTIVITY LEVEL: No restrictions. FOLLOWUP: Please follow up with Dr. Penny Pham on 11/09/17, at 12: 30 p.m. TIME SPENT ON DISCHARGE: Forty minutes. [id number]/[facility] #: [id number] [facility] SYSTEMElana
== END 2017-11-06 10:45 | disposition home or self-care (01) | DRG 383 ==
LOC: ED 15:45 → MED 11-04 02:20
PROVIDERS: ADMIT Hospitalist; ATTEND Internal Medicine
DX: L03.221 Cellulitis of neck (principal); C09.9 Malignant neoplasm of tonsil, unspecified; N18.3 Chronic kidney disease, stage 3 (moderate); K22.2 Esophageal obstruction; M72.8 Other fibroblastic disorders; I12.9 Hypertensive chronic kidney disease with stage 1 through stage 4 chronic kidney disease, or unspecified chronic kidney disease; K11.0 Atrophy of salivary gland; Z79.899 Other long term (current) drug therapy; Z82.49 Family history of ischemic heart disease and other diseases of the circulatory system
CPT/HCPCS: 36415; 70491; 80048; 80053; 80202; 85025; 85610; 85730; 86140; 87040; 87502; A9270-GY; J1644; J2543; J3370; Q9967